=== PATIENT | female | born 1990 | race Caucasian/White ===

== ENCOUNTER 2016-09-30 19:33 | Emergency (ER) | payer SELFPAY ==
[~2016-09-30] VITALS: Ht 170.2 cm; Wt 86.2 kg
[2016-09-30] MEDS ORDERED: XANAX0.25 MG ORAL (19:45)
[2016-09-30] MEDS ORDERED: LEXAPRO10 MG ORAL (19:45)
[2016-09-30 19:48] VITALS: BP 127/92
[2016-09-30 21:23] LABS: MEAN CORPUSCULAR HEMOGLOBIN 29.3 PG (27.0-31.0); MEAN CORPUSCULAR HGB CONC 33.1 G/DL (32.0-36.0); MEAN CORPUSCULAR VOLUME 89 FL (80-99); MEAN PLATELET VOLUME 6.8 FL (6.5-10.1); PLATELET COUNT 313 K/UL (150-450); RED BLOOD COUNT 4.78 M/UL (4.20-5.40); RED CELL DISTRIBUTION WIDTH 13.1 % (11.6-14.8); WHITE BLOOD COUNT 19.2 K/UL (4.8-10.8)
[2016-09-30 21:37] VITALS: BP 128/80
[2016-09-30 21:45] LABS: ALANINE AMINOTRANSFERASE 31 U/L (3-33); ALBUMIN/GLOBULIN RATIO 1.3 (1.0-2.7); ALCOHOL < 10 mg/dL; ANION GAP 19 (5-15); ASPARTATE AMINO TRANSFERASE 34 U/L (5-40); CALCIUM 9.4 mg/dL (8.6-10.2); CARBON DIOXIDE 21 mEQ/L (20-30); CHLORIDE 95 mEQ/L (98-107); CREATININE 0.8 mg/dL (0.5-0.9); GLOMERULAR FILTRATION RATE > 60 mL/min (>60); HEMOLYSIS 3; LIPASE 31 U/L (< 60); POTASSIUM 3.5 mEQ/L (3.4-4.9); SODIUM 135 mEQ/L (135-145); TOTAL PROTEIN 7.2 g/dL (6.6-8.7)
[2016-09-30 21:50] VITALS: BP 128/80
[2016-09-30 22:47] LABS: BAND NEUTROPHILS % (MANUAL) 1 % (0-8); BASOPHILS % (MANUAL) 0 % (0-2); EOSINOPHILS % (MANUAL) 1 % (0-3); LYMPHOCYTES % (MANUAL) 13 % (20-45); NEUTROPHILS % (MANUAL) 77 % (45-75); PLATELET ESTIMATE ADEQUATE; PLATELET MORPHOLOGY NORMAL; TOTAL CELLS COUNTED 100
--- NOTE | 2016-10-02 00:45 | Emergency Room Report ---
History of Present Illness General Chief Complaint: Substance Abuse Source: Patient, EMS Present Illness HPI Patient presents with complaints of overdose Paramedics found the patient unresponsive Patient was provided with Narcan which did improve the patient's mental status Upon arrival the patient states that she is not sure exactly what she took She that she was taking Xanax which is her usual medication she has taken before Patient denies any suicidal or homicidal thoughts Denies any headache denies any chest pain or shortness of breath and otherwise has no other complaints at this time Allergies: Coded Allergies: PENICILLIN G (Verified Allergy, Unknown, 09/30/16) Patient History Past Medical History: see triage record Pertinent Family History: none Last Menstrual Period: 09/10/16 Now: No Reviewed Nursing Documentation: PMH: Agreed, PSxH: Agreed Nursing Documentation-PMH Past Medical History: No History, Except For Review of Systems All Other Systems: negative except mentioned in HPI Physical Exam Vital Signs Date Time Temp Pulse Resp B/P Pulse Ox O2 Delivery O2 Flow Rate FiO2 09/30/16 19:38 98.6 106 16 127/92 99 Room Air Sp02 EP Interpretation: reviewed, normal General Appearance: well appearing, no apparent distress Head: normocephalic, atraumatic Eyes: bilateral eye EOMI, bilateral eye PERRL ENT: hearing grossly normal, normal pharynx, TMs + canals normal, uvula midline Neck: full range of motion, supple, no meningismus, no bony tend Respiratory: lungs clear, normal breath sounds, no rhonchi, no respiratory distress, no retraction, no accessory muscle use Cardiovascular #1: normal peripheral pulses, regular rate, rhythm, no edema, no gallop, no JVD, no murmur Gastrointestinal: normal bowel sounds, non tender, soft, no mass, no organomegaly, non-distended, no guarding, no hernia, no pulsatile mass, no rebound Genitourinary: no CVA tenderness Musculoskeletal: other - Cast on her upper hand Neurologic: oriented x3, responsive, 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, motor strength/ tone normal, sensory intact Psychiatric: mood/affect normal Skin: normal color, no rash, warm/dry, palpation normal Lymphatic: normal inspection, no adenopathy Medical Decision Making Diagnostic Impression: Primary Impression: unintentional overdose ER Course Patient was asked specifically regarding intentional ingestion Patient continues to deny any suicidal or homicidal thoughts At this time, patient is also in contact with her friend Who is presenting to the emergency room After nickolas for safety, patient feels comfortable with a friend to go home We did discuss possible further psychiatric evaluation patient adamantly denies any need for this denies any, intentional ingestion And was upset that she had taken the medication that could potentially have harmed her, Please note the patient's white blood cell count was also elevated, potential the margin sedation Patient otherwise denies any fevers Labs Test 09/30/16 21:00 White Blood Count 19.2 K/UL (4.8-10.8) Red Blood Count 4.78 M/UL (4.20-5.40) Hemoglobin 14.0 G/DL (12.0-16.0) Hematocrit 42.3 % (37.0-47.0) Mean Corpuscular Volume 89 FL (80-99) Mean Corpuscular Hemoglobin 29.3 PG (27.0-31.0) Mean Corpuscular Hemoglobin Concent 33.1 G/DL (32.0-36.0) Red Cell Distribution Width 13.1 % (11.6-14.8) Platelet Count 313 K/UL (150-450) Mean Platelet Volume 6.8 FL (6.5-10.1) Neutrophils (%) (Auto) % (45.0-75.0) Lymphocytes (%) (Auto) % (20.0-45.0) Monocytes (%) (Auto) % (1.0-10.0) Eosinophils (%) (Auto) % (0.0-3.0) Basophils (%) (Auto) % (0.0-2.0) Differential Total Cells Counted 100 Neutrophils % (Manual) 77 % (45-75) Lymphocytes % (Manual) 13 % (20-45) Monocytes % (Manual) 8 % (1-10) Eosinophils % (Manual) 1 % (0-3) Basophils % (Manual) 0 % (0-2) Band Neutrophils 1 % (0-8) Platelet Estimate Adequate Platelet Morphology Normal Red Blood Cell Morphology Normal Sodium Level 135 mEQ/L (135-145) Potassium Level 3.5 mEQ/L (3.4-4.9) Chloride Level 95 mEQ/L (98-107) Carbon Dioxide Level 21 mEQ/L (20-30) Anion Gap 19 (5-15) Blood Urea Nitrogen 12 mg/dL (7-23) Creatinine 0.8 mg/dL (0.5-0.9) Estimat Glomerular Filtration Rate > 60 mL/min (>60) Glucose Level 114 mg/dL (74-106) Calcium Level 9.4 mg/dL (8.6-10.2) Total Bilirubin < 0.2 mg/dL (0.0-1.2) Aspartate Amino Transf (AST/SGOT) 34 U/L (5-40) Alanine Aminotransferase (ALT/SGPT) 31 U/L (3-33) Alkaline Phosphatase 101 U/L (35-104) Total Protein 7.2 g/dL (6.6-8.7) Albumin 4.1 g/dL (3.5-5.2) Globulin 3.1 g/dL Albumin/Globulin Ratio 1.3 (1.0-2.7) Lipase 31 U/L (< 60) Serum Alcohol < 10 mg/dL Last Vital Signs Date Time Temp Pulse Resp B/P Pulse Ox O2 Delivery O2 Flow Rate FiO2 09/30/16 21:50 98.6 76 16 128/80 100 Room Air Status: improved Disposition: HOME, SELF-CARE Condition: Stable Referrals: NOT CHOSEN [facility]/MD,REFERRING (PCP) Patient Instructions: Drug Overdose Additional Instructions: Patient is provided with the discharge instructions notified to follow up with primary doctor in the next 2-3 days otherwise return to the er with any worsening symptoms. Please note that this report is being documented using DRAGON technology. This can lead to erroneous entry secondary to incorrect interpretation by the dictating instrument. RONALD ROWLAND D.O. Oct 02, 2016 00:45
== END 2016-09-30 21:50 | disposition home or self-care (01) ==
LOC: EDBD 19:33 → EMR 20:20
DX: T50.901A Poisoning by unspecified drugs, medicaments and biological substances, accidental (unintentional), initial encounter (principal); Z88.0 Allergy status to penicillin; X58.XXXA Exposure to other specified factors, initial encounter; Y92.9 Unspecified place or not applicable; Y99.8 Other external cause status
CPT/HCPCS: 36415; 80053; 83690; 85007; 85025; 96374; 96375; 99284; G0480; J2405; 80329